=== PATIENT | female | born 1960 | race African-American/Black ===

== ENCOUNTER 2023-07-15 10:59 | Emergency (ER) | payer MEDICARE ==
[~2023-07-15] VITALS: Ht 167.6 cm; Wt 100.0 kg
[~2023-07-15 10:59] MED LIST: APIX5TAB PO; CLON0.1T14 PO; DOCU-150 PO; FURO-151 MT; GUAI-741 PO; HYDR50TA39 PO; MONT-46 PO; NIFE-32 PO; NIFE90TA69 PO; SENN-3 PO
[2023-07-15 11:03] VITALS: BP 122/80; PULSE 75; RESP 18; TEMP 98.1; O2SAT 100
[2023-07-15] MEDS: ACETAMINOPHEN WITH CODEINE 300/30MG TABLET PO ONE (11:45)
[2023-07-15] MEDS ORDERED: TOPUD PO (12:28)
== END 2023-07-15 13:49 | disposition home or self-care (01) ==
LOC: ER 10:59
DX: M79.604 Pain in right leg (principal); I11.0 Hypertensive heart disease with heart failure; I50.9 Heart failure, unspecified; Z79.899 Other long term (current) drug therapy; Z86.73 Personal history of transient ischemic attack (TIA), and cerebral infarction without residual deficits
CPT/HCPCS: 73590; 99283